=== PATIENT | male | born 1975 | race Two or more races ===

== ENCOUNTER 2017-11-22 20:05 | Emergency (ER) | payer SELFPAY ==
[~2017-11-22] VITALS: Ht 170.2 cm; Wt 106.6 kg
[2017-11-22 20:11] VITALS: Ht 170.2 cm; Wt 106.6 kg
[2017-11-22 21:47] VITALS: BP 158/93
== END 2017-11-22 21:40 | disposition home or self-care (01) ==
LOC: ED 20:05
DX: S02.2XXA Fracture of nasal bones, initial encounter for closed fracture (principal); I10 Essential (primary) hypertension; W22.8XXA Striking against or struck by other objects, initial encounter; Y93.64 Activity, baseball; Y92.89 Other specified places as the place of occurrence of the external cause; Y99.8 Other external cause status
CPT/HCPCS: 90715; J2001